=== PATIENT | female | born 1980 | race Caucasian/White ===

== ENCOUNTER 2016-10-08 18:31 | Emergency (ER) | payer OTHER ==
--- NOTE | 2016-10-11 12:45 | ER ---
ADMIT: 10/08/2016 RM/LOC: ER [facility] MR#: [id number] [address] [id number] [address] [place] [address] Emergency Room Report SEX: F AGE: 36 : 1980 DATE: 10/08/2016 SUBJECTIVE: The patient is a 36-year-old female with a past medical history of migraine, who came to the ER with a chief complaint of headache for 1 day since yesterday. Allegedly, also the patient suffers of photophobia and states that the headache is in all the head and it is very similar to the previous migraine headaches that she has had in quality and quantity. Pain is moderate to severe in quality and quantity. The patient denies any fever, but complains of nausea without vomiting. The patient denies any recent trauma. PHYSICAL EXAMINATION: GENERAL: The patient was afebrile in the ER, was in moderate distress. HEAD AND NECK: There is no meningismus. Jolt test is negative. Pupils are 3 mm, reactive to light. Neural exam is grossly normal. There is no tenderness on the temporal area. There is no lead pipe rigidity. TM joints, palpation sounds are nontender and are normal. Rest of the physical exam was negative and noncontributory. The patient had no focal neurological deficits. The patient received Nubain IM, promethazine IM, Benadryl IV, and IV fluid normal saline and the headache is controlled. The patient is stable to be discharged to home. The patient is symptom free and did not develop any new symptoms or signs or focal deficit. DIAGNOSIS: [id number] cephalgia. Niraj Martinez MD/ laura JOB #: [id number] CC: Lai Varela MD, Attending Physician Henry Mittal MD, Family Physician
== END 2016-10-08 22:05 | disposition home or self-care (01) ==
LOC: ER 18:31
DX: R51 Headache (principal); Z90.49 Acquired absence of other specified parts of digestive tract; J45.909 Unspecified asthma, uncomplicated; Z79.899 Other long term (current) drug therapy; Z88.8 Allergy status to other drugs, medicaments and biological substances